=== PATIENT | male | born 2000 | race Caucasian/White ===

== ENCOUNTER 2022-07-20 08:05 | Emergency (ER) | payer OTHER ==
[~2022-07-20] VITALS: Ht 172.7 cm; Wt 80.4 kg
[2022-07-20 11:02] VITALS: BP 124/80
[2022-07-20 13:42] LABS: GC DNA AMPLIFICATION NEGATIVE (NEGATIVE)
== END 2022-07-20 11:03 | disposition home or self-care (01) ==
LOC: M ED 08:05
DX: N50.3 Cyst of epididymis (principal)